=== PATIENT | female | born 1970 | race Caucasian/White ===

== ENCOUNTER 2023-06-16 20:55 | Outpatient (REF) | payer SELFPAY | END 2023-06-16 20:56 | disposition home or self-care (01) | LOC: NCHCN 20:55 | PROVIDERS: PCP Nurse Practitioner Family; Visit Provider Physician Assistant | DX: N39.0 Urinary tract infection, site not specified (principal); N76.0 Acute vaginitis | CPT/HCPCS: 87077; 87086; 87186; 87480; 87510; 87660 ==